=== PATIENT | female | born 1980 | race Caucasian/White ===

== ENCOUNTER 2018-05-11 19:25 | Emergency (ER) | payer SELFPAY, OTHER, MEDICAID ==
[2018-05-11] MEDS: HALOPERIDOL 5 MG INJ IV (22:05)
[2018-05-11] MEDS: ONDANSETRON 4 MG INJ IV (22:05)
[2018-05-11 22:17] LABS: URINE BLOOD (Dip) POC 3+ (NEGATIVE); URINE GLUCOSE (Dip) POC Negative (NEGATIVE); URINE KETONES (Dip) POC 4+ (NEGATIVE); URINE LEUKOCYTE EST (Dip) POC Trace (NEGATIVE); URINE NITRITE (Dip) POC Negative (NEGATIVE); URINE TOTAL PROTEIN POC 2+ (NEGATIVE)
== END 2018-05-12 06:57 | disposition home or self-care (01) ==
LOC: E/R 05-12 06:57
DX: R10.84 Generalized abdominal pain (principal); R40.2142 Coma scale, eyes open, spontaneous, at arrival to emergency department; R40.2252 Coma scale, best verbal response, oriented, at arrival to emergency department; R40.2362 Coma scale, best motor response, obeys commands, at arrival to emergency department; G89.29 Other chronic pain
CPT/HCPCS: 81003; 81025; 96374; 96375; 99284-25